=== PATIENT | male | born 1965 | race Caucasian/White ===

== ENCOUNTER 2017-03-11 23:12 | Inpatient (IN) | payer OTHER ==
[~2017-03-11] VITALS: Ht 177.8 cm; Wt 112.1 kg
[2017-03-11 23:19] VITALS: BP 127/78
[2017-03-11] MEDS ORDERED: GLYBURIDE5 MG PO (23:23)
[2017-03-11] MEDS ORDERED: METFORMIN HCL500 MG PO (23:23)
[2017-03-11] MEDS ORDERED: FUROSEMIDE40 MG PO (23:23)
[2017-03-11] MEDS ORDERED: MONTELUKAST SOD10 MG PO (23:24)
[2017-03-11] MEDS ORDERED: LISINOPRIL20 MG PO (23:24)
[2017-03-11] MEDS ORDERED: POTASSIUM CHLO10 ME5 PO (23:24)
[2017-03-11] MEDS ORDERED: SPIRONOLACTONE50 M1 PO (23:24)
[2017-03-11] MEDS ORDERED: LANTUS SOLOS100 U/M1 SC (23:25)
[2017-03-11] MEDS ORDERED: OMEPRAZOLE40 MG PO (23:25)
[2017-03-11] MEDS ORDERED: CARVEDILOL3.125 MG PO (23:25)
[2017-03-11 23:54] LABS: BASO # 0.1 10*3/uL (0.0-0.1); BASO % 0.8 % (0.0-1.0); EOS # 0.2 10*3/uL (0.0-0.4); EOS % 1.8 % (1.0-4.0); HEMATOCRIT 42.8 % (42.0-52.0); HEMOGLOBIN 14.5 g/dl (14.0-18.0); IG # 0.1 10*3/uL (0.0-0.1); LYMPH # 1.6 10*3/uL (1.3-4.4); LYMPH % 19.3 % (27.0-41.0); MEAN CELL VOLUME 79.4 fl (80.0-94.0); MEAN CORPUSCULAR HGB 26.9 pg (27.0-31.0); MEAN CORPUSCULAR HGB CONC 33.9 g/dl (33.0-37.0); MONO # 0.6 10*3/uL (0.1-1.0); MONO % 7.8 % (3.0-9.0); NEUT # 5.7 10*3/uL (2.3-7.9); NEUT % 69.5 % (47.0-73.0); PLATELET COUNT AUTOMATED 220 10*3/uL (130-400); RED BLOOD COUNT 5.39 10*6/uL (4.50-5.90); RED CELL DISTRI WIDTH 15.3 % (0-14.5); WHITE BLOOD COUNT 8.3 10*3/uL (4.8-10.8)
[2017-03-11 23:55] VITALS: BP 129/83
[2017-03-11 23:57] VITALS: BP 127/80
[2017-03-11 23:57] LABS: INTERNATIONAL NORM RATIO 0.9 (2.0-3.5); PROTHROMBIN TIME 9.5 SECONDS (9.0-12.4)
[2017-03-12] VITALS (8 sets, daily range): BP systolic 116–147; BP diastolic 57–90
[2017-03-12 00:12] LABS: ALBUMIN 2.8 gm/dl (3.1-4.5); ALKALINE PHOSPHATASE 59 U/L (45-117); BILIRUBIN, TOTAL 0.5 mg/dl (0.2-1.0); BUN 34 mg/dl (7-24); CARBON DIOXIDE 23 mmol/L (21-32); CHLORIDE 90 mmol/L (98-107); EST GLOM FILT AFRICAN AMERICAN 57 ml/min; POTASSIUM 5.1 mmol/L (3.5-5.1); SGOT/AST 21 IU/L (3-35); SGPT/ALT 25 U/L (12-78); SODIUM 126 mmol/L (136-145); TOTAL PROTEIN 7.1 gm/dL (6.4-8.2)
[2017-03-12 00:14] LABS: GLUCOSE 618 mg/dL (65-99); TROPONIN I < 0.015 ng/ml (<0.045)
[2017-03-12 02:32] LABS: ABG BASE EXCESS -3.9 mmol/L (-2.0-2.0); ABG HCO3 22.5 mmol/l (22-26); ABG TEMPERATURE 97.9 F (98.0-99.0); ARTERIAL BLOOD GAS PH 7.298 (7.35-7.45)
[2017-03-12 04:05] LABS: BUN 30 mg/dl (7-24); CARBON DIOXIDE 23 mmol/L (21-32); CHLORIDE 98 mmol/L (98-107); EST GLOM FILT AFRICAN AMERICAN > 60 ml/min; POTASSIUM 4.5 mmol/L (3.5-5.1); SODIUM 135 mmol/L (136-145)
[2017-03-12 04:10] LABS: GLUCOSE 514 mg/dL (65-99)
[2017-03-12 06:17] LABS: BASO # 0.1 10*3/uL (0.0-0.1); BASO % 0.8 % (0.0-1.0); EOS # 0.1 10*3/uL (0.0-0.4); EOS % 1.2 % (1.0-4.0); HEMATOCRIT 40.7 % (42.0-52.0); LYMPH # 1.4 10*3/uL (1.3-4.4); LYMPH % 15.9 % (27.0-41.0); MEAN CELL VOLUME 80.3 fl (80.0-94.0); MEAN CORPUSCULAR HGB 27.6 pg (27.0-31.0); MEAN CORPUSCULAR HGB CONC 34.4 g/dl (33.0-37.0); MEAN PLATELET VOLUME 10.7 fl (9.6-12.3); MONO # 0.4 10*3/uL (0.1-1.0); MONO % 4.3 % (3.0-9.0); NEUT # 6.9 10*3/uL (2.3-7.9); NEUT % 77.4 % (47.0-73.0); PLATELET COUNT AUTOMATED 211 10*3/uL (130-400); RED BLOOD COUNT 5.07 10*6/uL (4.50-5.90); RED CELL DISTRI WIDTH 15.2 % (0-14.5)
[2017-03-12 06:29] LABS: BUN 28 mg/dl (7-24); CARBON DIOXIDE 24 mmol/L (21-32); CHLORIDE 99 mmol/L (98-107); CKMB 2.2 ng/ml (0.5-3.6); CPK 161 U/L (39-308); EST GLOM FILT AFRICAN AMERICAN > 60 ml/min; GLUCOSE 410 mg/dL (65-99); POTASSIUM 4.4 mmol/L (3.5-5.1); SODIUM 132 mmol/L (136-145); TROPONIN I 0.024 ng/ml (<0.045)
[2017-03-12 06:30] LABS: FREE T4 0.87 ng/dl (0.76-1.46); MAGNESIUM 1.9 mg/dL (1.5-2.1); PHOSPHOROUS 3.1 mg/dL (2.5-4.9)
[2017-03-12 06:32] LABS: INTERNATIONAL NORM RATIO 0.9 (2.0-3.5); PROTHROMBIN TIME 9.6 SECONDS (9.0-12.4)
[2017-03-12 06:36] LABS: THYROID STIM HORMONE (HS) 1.07 uIU/ml (0.358-4.75)
[2017-03-12 07:09] LABS: HEMOGLOBIN A1c 12.8 % (4.8-5.6)
[2017-03-12 07:39] LABS: VITAMIN D, 25-HYDROXY 14.6 ng/mL (30-100)
[2017-03-12 07:40] LABS: FOLIC ACID 10.49 ng/mL (>5.38)
[2017-03-12 08:17] LABS: BUN 26 mg/dl (7-24); CARBON DIOXIDE 24 mmol/L (21-32); CHLORIDE 101 mmol/L (98-107); EST GLOM FILT AFRICAN AMERICAN > 60 ml/min; GLUCOSE 293 mg/dL (65-99); SODIUM 134 mmol/L (136-145)
[2017-03-12 12:12] LABS: CKMB 2.5 ng/ml (0.5-3.6); TROPONIN I 0.026 ng/ml (<0.045)
[2017-03-12 18:18] LABS: CKMB 2.4 ng/ml (0.5-3.6); TROPONIN I 0.02 ng/ml (<0.045)
[2017-03-13] VITALS: BP 138/82
[2017-03-13 06:57] LABS: BASO # 0.1 10*3/uL (0.0-0.1); EOS # 0.2 10*3/uL (0.0-0.4); HEMATOCRIT 41.6 % (42.0-52.0); HEMOGLOBIN 14.2 g/dl (14.0-18.0); LYMPH # 2.1 10*3/uL (1.3-4.4); LYMPH % 35.5 % (27.0-41.0); MEAN CELL VOLUME 81.7 fl (80.0-94.0); MEAN CORPUSCULAR HGB 27.9 pg (27.0-31.0); MEAN CORPUSCULAR HGB CONC 34.1 g/dl (33.0-37.0); MEAN PLATELET VOLUME 11.3 fl (9.6-12.3); MONO # 0.6 10*3/uL (0.1-1.0); PLATELET COUNT AUTOMATED 202 10*3/uL (130-400); RED BLOOD COUNT 5.09 10*6/uL (4.50-5.90); RED CELL DISTRI WIDTH 15.9 % (0-14.5)
[2017-03-13 07:26] LABS: ALBUMIN 2.4 gm/dl (3.1-4.5); BUN 26 mg/dl (7-24); CARBON DIOXIDE 26 mmol/L (21-32); CHLORIDE 98 mmol/L (98-107); EST GLOM FILT AFRICAN AMERICAN > 60 ml/min; GLUCOSE 367 mg/dL (65-99); POTASSIUM 4.3 mmol/L (3.5-5.1); SGOT/AST 21 IU/L (3-35); SGPT/ALT 24 U/L (12-78); SODIUM 132 mmol/L (136-145)
[2017-03-13 07:29] LABS: ALKALINE PHOSPHATASE 57 U/L (45-117); BILIRUBIN, TOTAL 0.3 mg/dl (0.2-1.0); TOTAL PROTEIN 6.4 gm/dL (6.4-8.2)
[2017-03-13 08:00] VITALS: BP 119/78
[2017-03-13 12:00] VITALS: BP 130/78
[2017-03-13] MEDS ORDERED: SIMVASTATIN40 MG PO (12:12)
[2017-03-13] MEDS ORDERED: COREG12.5 M1 PO (12:12)
== END 2017-03-13 14:07 | disposition home or self-care (01) | DRG 637 ==
LOC: ED 23:12 → EDHOLD 03-12 00:55 → 4E 03-12 00:55 → ICCU 03-12 01:05 → 4E 03-12 18:47
PROVIDERS: Emergency Medicine; Family Medicine; Internal Medicine
DX: E13.10 Other specified diabetes mellitus with ketoacidosis without coma (principal); N17.0 Acute kidney failure with tubular necrosis; E43 Unspecified severe protein-calorie malnutrition; E87.1 Hypo-osmolality and hyponatremia; E87.8 Other disorders of electrolyte and fluid balance, not elsewhere classified; F17.200 Nicotine dependence, unspecified, uncomplicated; I10 Essential (primary) hypertension; Z51.5 Encounter for palliative care; I25.119 Atherosclerotic heart disease of native coronary artery with unspecified angina pectoris; Z66 Do not resuscitate; E78.5 Hyperlipidemia, unspecified; K21.0 Gastro-esophageal reflux disease with esophagitis; E66.01 Morbid (severe) obesity due to excess calories; R06.82 Tachypnea, not elsewhere classified; I25.10 Atherosclerotic heart disease of native coronary artery without angina pectoris; I25.2 Old myocardial infarction; Z95.810 Presence of automatic (implantable) cardiac defibrillator; Z95.5 Presence of coronary angioplasty implant and graft; Z79.4 Long term (current) use of insulin; Z71.6 Tobacco abuse counseling; Z80.1 Family history of malignant neoplasm of trachea, bronchus and lung; Z82.49 Family history of ischemic heart disease and other diseases of the circulatory system; Z79.84 Long term (current) use of oral hypoglycemic drugs; Z79.899 Other long term (current) drug therapy; Z68.35 Body mass index [BMI] 35.0-35.9, adult